=== PATIENT | female | born 1985 ===

== ENCOUNTER → 2017-10-06 | Emergency (ER) | payer SELFPAY ==
[~2017-10-06] MED LIST: Lactated Ringer's 1,000 ML IV SCH
[2017-10-06 22:24] VITALS: BMI 23.9
--- NOTE | 2017-10-06 23:55 | OBHP ---
Datetime: 10/06/2017 21:43 IP Adm Impression: , intrauterine IP Chief Complaint Other: pelvic pain IP Admit Plan: Observation/Evaluation; Discharge home Admit Comment, IP Provider: HPI: The patient is a 32 y/o F , 29.6 weeks EGA by LMP with EDC 1 who presents to [facility] c/o lower pelvic pain that started today at 6 pm, is up to 7/10 in inten sity, pressure like in quality, patient sates is intermittent and it happens mostly when she is stand ing and walking around and gets relief when she is resting, she states the pain has no radiation. Pat ient denies vaginal bleeding, denies feeling contractions, loss of fluid. Denies recent sexual activi ty in the last week, trauma, dizziness, headache, chest pain, SOB, N/V/D, or dysuria. Patient reports movements recently. Patient resports a whitish discharge that she noticed more than a week ago , denies itchcing or mal odor. OBGYN: , patient reports hx of 2 , patient reports that at the end of her second pregna ncy she was told she was at risk of delivery but she delivered term. ROS: Unremarkable, except as per HPI. LMP: 12/09/17, TOM:12/16/17, Fisrt US: 06/30/17 PMH: none FMH: none Social Hx: Denies tobacco/ETOH/Rec drugs Surg Hx: None Allergies: NKA MEDS: PNV Provider: Dr Boyle at [facility] clinic. Assessment/Plan 32 y/o with EGA 29.6 weeks, TOM 12/16/17 with c/o inttermiten pelvic pain for approxiamtel y 4 hours that increases with standing and walking and gets relief with rest, and with reproducible t enderness to palpation of pubic area could be caused by pubic symphysis pain during vs pret erm uterine contractions given her reported hx of risk of labor in her second . -IVF hydration -Transvaginal US with Cervix length measurement. Thom Tavarez MD PGY1 OB Hospitalist Addendum: Pt seen and examined by me. Agree w/ above. 32 yo at 29+6 wks w/ pelvic pain since 6 pm. On exam, elicited pubic bone tenderness w/ palpation. U/s revealed cervi x long and closed, 4.1 cm. Pt given IVF and uterine irritability resolved Expained to her w/ trhe resident translating that she may have pubic symphysis separation. Rec a pelvic brace, tylenol as n eeded and rest. Pt discharged home and has a f/u appoint on Mon., 10/13/2017. (ES) FHR - Baseline A Provider: 140's Contraction Comments Provider: irritability Comments, ACOG Physical Exam: GEN: NAD HEENT: Normocephalic, EOMI RESP: CTA bilateral CV: RRR,S1 S2 present normal, no murmurs noted ABD: Gravid, BS present, reproducible tenderness to palpation of pubic area LE: no edema. Pelvic Exam: Cervix closed IP Hx Assessment: The History has been Reviewed and is Current EGA AdmitDate IP: 28.6 Vital Signs Provider: Reviewed IP Chief Complaint: Other NICHD Variability Prov Fetus A: Moderate 6-25bpm NICHD Decel Fetus A IP Provider: None Dilatation, Provider: 0 Effacement, Provider: 0 Station, Provider: -3
--- NOTE | 2017-10-06 23:55 | OBDCSUM ---
Datetime: 10/06/2017 23:53 Discharged to, Provider: Home Discharged to, Provider: [place] Follow up at, Provider: [facility] Follow up at, Provider: [facility] Disch Instr Activity: Normal activity Disch Instr Diet: Regular Discharge Instructions, Provider: Routine instructions given Discharge Time: 10/06/2017 23:54 Follow up in weeks, Provider: 1 week Disch Referrals: None Discharge Diagnosis Prov Other: Pelvic pain at 29+ 6 wks
--- NOTE | 2017-10-07 11:20 | US ---
Date of service: 10/06/2017 PROCEDURE: Limited pelvic ultrasound HISTORY: irritability at 29 weeks Request for cervical length only. COMPARISON: None available. TECHNIQUE: Standard protocol for this study/examination. FINDINGS: Cervical length 4.1 cm. The cervix is closed. IMPRESSION: Closed cervix 4.1 cm. Concordant results (preliminary interpretation) provided by [facility]. Procedure Completed: 22:35. Preliminary ([facility]) Report: Dictated and Authenticated: 23:14 Final Interpretation: 11:18
== END | disposition home or self-care (01) ==
LOC: H.EROB2 20:34
DX: O26.93 Pregnancy related conditions, unspecified, third trimester (principal); R10.2 Pelvic and perineal pain; N89.8 Other specified noninflammatory disorders of vagina; Z3A.29 29 weeks gestation of pregnancy
CPT/HCPCS: 76817; 96360; 99284; J7120

== ENCOUNTER 2017-11-11 10:37 | Emergency (ER) | payer SELFPAY ==
[2017-10-06 22:24] VITALS: BMI 23.9
[2017-11-11 13:10] VITALS: BP 120/78; PULSE 63; RESP 16; TEMP 98; O2SAT 98
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
== END 2017-11-11 13:36 | disposition left against medical advice (07) ==
LOC: H.ER 10:37 → H.EROB2 10:37 → H.ER 13:36
DX: O26.93 Pregnancy related conditions, unspecified, third trimester (principal); Z04.3 Encounter for examination and observation following other accident; Z3A.35 35 weeks gestation of pregnancy; M54.2 Cervicalgia; M54.9 Dorsalgia, unspecified; V43.62XA Car passenger injured in collision with other type car in traffic accident, initial encounter

== ENCOUNTER 2017-11-23 00:31 | Emergency (ER) | payer SELFPAY ==
[2017-11-23 01:08] VITALS: BMI 25.6
--- NOTE | 2017-11-23 01:39 | OBHP ---
Datetime: 11/23/2017 01:28 IP Adm Impression: , intrauterine IP Chief Complaint Other: urinary frequency IP Admit Plan: Observation/Evaluation; Discharge home Admit Comment, IP Provider: 32 @ 36w5d presents here today c/o urine frequency with scanty urin ation. She also reports of pelvic pressure on and off. Denies VB or LOF but feels movements. OBHX: PMHx: Nil of Note PSHx: None Social Hx: No toxic habits O: HR- RRR Chest: CTA B/L CVA tenderness - absent B/L ABd: Soft, NT, BS- present FHR- Category 1 TOCO: none SVE: 0/0/-3 Assessment: IUP at 36+ weeks UTI NST - reactive Plan: UA Macrobid 100mg BID X 7 days Increase fluid intake. D/C Home when UA results are in F/U with the clinic in 1 week Pelvic Type - PN: Adequate Extremities - PN: Normal Abdomen - PN: Normal Back - PN: Normal Breast - PN: Normal Lungs - PN: Normal Heart - PN: Normal Thyroid - PN: Normal Neurologic - PN: Normal HEENT - PN: Normal General - PN: Normal Presentation-Admit: Vertex FHR - Baseline A Provider: 150 Membranes, Provider: Intact Gestation - Est Wks by US: 36.5 EGA AdmitDate IP: 36.5 Vital Signs Provider: Reviewed IP Chief Complaint: Maternal discomfort NICHD Variability Prov Fetus A: Moderate 6-25bpm NICHD Accel Fetus A IP Provider: 15X15 FHR Category Provider Fetus A: Category I NICHD Decel Fetus A IP Provider: None Dilatation, Provider: 0 Effacement, Provider: 0 Station, Provider: -3 Genitourinary Exam: Normal DTRs - PN: Normal
[2017-11-23 02:11] LABS: SQUAMOUS EPITHIAL 2 /hpf (0-5); URINE BACTERIA OCC (<OCC); URINE BILIRUBIN NEGATIVE (NEGATIVE); URINE BLOOD SMALL (NEGATIVE); URINE CLARITY SLIGHTY-CLOUDY (Clear); URINE COLOR YELLOW (YELLOW); URINE GLUCOSE (UA) NEG (Normal); URINE LEUKOCYTE ESTERASE NEG Leu/uL (Negative); URINE PROTEIN NEGATIVE (NEGATIVE); URINE UROBILINOGEN 0.2-1.0 mg/dL (0.2-1.0)
[2017-11-23 09:30] VITALS: BP 115/70; PULSE 66; RESP 18; TEMP 98.2; O2SAT 98
== END 2017-11-23 02:35 | disposition home or self-care (01) ==
LOC: H.EROB2 00:31
DX: O99.89 Other specified diseases and conditions complicating pregnancy, childbirth and the puerperium (principal); R35.0 Frequency of micturition; O26.93 Pregnancy related conditions, unspecified, third trimester; R10.2 Pelvic and perineal pain; Z3A.36 36 weeks gestation of pregnancy

== ENCOUNTER 2017-12-05 12:25 | Inpatient (IN) | payer MEDICAID, SELFPAY ==
[2017-12-05 12:57] VITALS: BMI 26.9
[2017-12-05 13:45] LABS: MEAN CELL VOLUME 87.7 fl (81.0-99.0); MEAN CORPUSCULAR HEMOGLOBIN 29.4 pg (27.0-31.0); MEAN CORPUSCULAR HGB CONC 33.5 g/dL (33.0-37.0); RBC 4.06 Mil/uL (3.80-5.20); RED CELL DISTRIBUTION WIDTH 14.8 % (11.5-14.5); WHITE BLOOD COUNT 7.9 K/uL (4.8-10.8)
[2017-12-05 13:57] LABS: ALB/GLOB RATIO 0.9 (1.0-2.1); ALBUMIN 3.5 g/dL (3.5-5.0); ALT/SGPT 23 U/L (9-52); AST/SGOT 24 U/L (14-36); BLOOD UREA NITROGEN 6 mg/dl (7-17); CALCIUM 9.1 mg/dL (8.4-10.2); GFR NON-AFRICAN AMERICAN > 60
--- NOTE | 2017-12-05 15:58 | OBHP ---
Datetime: 12/05/2017 15:29 IP Adm Impression: Term, intrauterine IP Admit Plan: Admit to unit; Initiate labor induction protocol Admit Comment, IP Provider: HPI: 32 yo at 38.3 who was sent over from her regular clinic visit for elevated blood pressure. She reportedly had a BP reading in the 140s/90s today for the first time with complaints of headache. She reports that her headache started yesterday afternoon along with fl ashes of light in her vision whenever she moves her eyes. Denies current RUQ or epigastric pain or si gnificant swelling. Denies any current complications with this . This was dated by LMP and confirmed by 15 week US. ROS: as above, otherwise negative History G1: in 2005 @ 40 wks, no complications G2: in 2007 @ 38 wks, no complications G3: current PMH Denies PSH Denies Family History Not significant Medications PNV Allergies NKDA Social Lives with her current and 2 children. Her is not the father of her 2 other childr en. OBJECTIVE See exam section Vitals: BP has ranged from 120s-140s/60s-90s labs: GBS neg, HIV/RPR neg, Hep B neg Labs Hgb 12 Plts 179 AST/ALT 24/23 Urine protein:Cr 0.26 Assessment/Plan: 32yo at 38.3 weeks admitted for evidence of gestational hypertension and lik lia pre-eclampsia. Her elevated BP readings here and in the clinic are suggestive of new onset gestat ional hypertension and her CARRANZA and vision changes would suggets pre-eclampsia, possibly with severe fe atures, despite her protein:Cr ratio <3. Given her GA age >37 weeks and documented elevated BP she wi ll be admitted and IOL started. - Johnson score <6, starting with PO cytotec - GBS NEG - Appropriate BP monitoring, can start Mg if she has severe range BPs or her headache/vision castillo es worsen Dana Dumont MD OB Fellow Seen with the resident I agree with the note Abdomen - PN: Normal Lungs - PN: Normal Heart - PN: Normal HEENT - PN: Normal General - PN: Normal IP Fetus A Comments: Reactive NST FHR - Baseline A Provider: 135 Contraction Comments Provider: Irritability Gestation - Est Wks by US: 38.3 EGA AdmitDate IP: 38.3 Vital Signs Provider: Reviewed; Within Normal Limits IP Indication for Induction: Gest. HTN/PreEclampsia/Eclampsia IP Chief Complaint: Signs/Symptoms Gestational HTN NICHD Variability Prov Fetus A: Moderate 6-25bpm NICHD Accel Fetus A IP Provider: 15X15 NICHD Decel Fetus A IP Provider: None Dilatation, Provider: 0 Effacement, Provider: 50 Station, Provider: -3
--- NOTE | 2017-12-05 16:51 | OBADHP ---
Datetime: 12/05/2017 15:29 Admit Comment, IP Provider: HPI: 32 yo at 38.3 who was sent over from her regular clinic visit for elevated blood pressure. She reportedly had a BP reading in the 140s/90s today for the first time with complaints of headache. She reports that her headache started yesterday afternoon along with fl ashes of light in her vision whenever she moves her eyes. Denies current RUQ or epigastric pain or si gnificant swelling. Denies any current complications with this . This was dated by LMP and confirmed by 15 week US. ROS: as above, otherwise negative History G1: in 2005 @ 40 wks, no complications G2: in 2007 @ 38 wks, no complications G3: current PMH Denies PSH Denies Family History Not significant Medications PNV Allergies NKDA Social Lives with her current and 2 children. Her is not the father of her 2 other childr en. OBJECTIVE See exam section Vitals: BP has ranged from 120s-140s/60s-90s labs: GBS neg, HIV/RPR neg, Hep B neg Labs Hgb 12 Plts 179 AST/ALT 24/23 Urine protein:Cr 0.26 Assessment/Plan: 32yo at 38.3 weeks admitted for evidence of gestational hypertension and lik lia pre-eclampsia. Her elevated BP readings here and in the clinic are suggestive of new onset gestat ional hypertension and her CARRANZA and vision changes would suggets pre-eclampsia, possibly with severe fe atures, despite her protein:Cr ratio <3. Given her GA age >37 weeks and documented elevated BP she wi ll be admitted and IOL started. - Johnson score <6, starting with PO cytotec - GBS NEG - Appropriate BP monitoring, can start Mg if she has severe range BPs or her headache/vision castillo es worsen Dana Dumont MD OB Fellow Seen with the resident I agree with the note Abdomen - PN: Normal Lungs - PN: Normal Heart - PN: Normal HEENT - PN: Normal General - PN: Normal IP Fetus A Comments: Reactive NST FHR - Baseline A Provider: 135 Contraction Comments Provider: Irritability Gestation - Est Wks by US: 38.3 Vital Signs Provider: Reviewed; Within Normal Limits IP Chief Complaint: Signs/Symptoms Gestational HTN NICHD Variability Prov Fetus A: Moderate 6-25bpm NICHD Accel Fetus A IP Provider: 15X15 NICHD Decel Fetus A IP Provider: None Dilatation, Provider: 0 Effacement, Provider: 50 Station, Provider: -3 EGA AdmitDate IP: 38.3 IP Adm Impression: Term, intrauterine IP Admit Plan: Admit to unit; Initiate labor induction protocol Datetime: 11/23/2017 01:28 IP Chief Complaint Other: urinary frequency Pelvic Type - PN: Adequate Extremities - PN: Normal Back - PN: Normal Breast - PN: Normal Thyroid - PN: Normal Neurologic - PN: Normal Presentation-Admit: Vertex Membranes, Provider: Intact FHR Category Provider Fetus A: Category I Genitourinary Exam: Normal DTRs - PN: Normal Datetime: 11/11/2017 11:29 IP Admit Plan Other: transfer to ER IP Hx Assessment: The History has been Reviewed and is Current Datetime: 10/06/2017 21:43 Comments, ACOG Physical Exam: GEN: NAD HEENT: Normocephalic, EOMI RESP: CTA bilateral CV: RRR,S1 S2 present normal, no murmurs noted ABD: Gravid, BS present, reproducible tenderness to palpation of pubic area LE: no edema. Pelvic Exam: Cervix closed
[2017-12-05] MEDS ORDERED: Oxytocin 30 UNIT 30 UNITS/500 ML BAG IV ONE (22:00)
[2017-12-05] MEDS ORDERED: OXYTOCIN/0.9 % NS 20 UNIT/1,000 ML BAG IV SCH (22:00)
--- NOTE | 2017-12-06 09:34 | OBPN ---
Datetime: 12/06/2017 09:27 IP Progress Impression: Reassuring heart rate IP Procedures: Sterile Vag Exam IP Progress Plan: Continue present management; Cervical Ripening Membranes, Provider: Intact Contraction Comments Provider: irregular FHR - Baseline A Provider: 130 Gestation - Est Wks by US: 38.4 Presentation-Admit: Vertex IP Progress Note Comment: IUP at 38.4 Preeclampsia with severe features Undergoing IOL Cytotec for cervical ripening #2 Plan: Contunue current management Next dose of cytotec by vaginal route. Re evaluate. NICHD Accel Fetus A IP Provider: 15X15 FHR Category Provider Fetus A: Category I NICHD Variability Prov Fetus A: Moderate 6-25bpm Dilatation, Provider: 1-2 Effacement, Provider: 40 Station, Provider: -3 NICHD Decel Fetus A IP Provider: None Datetime: 12/06/2017 05:39 IP Informed Consent Obtain: Induction of Labor Vital Signs Provider: Reviewed; Within Normal Limits Datetime: 12/05/2017 15:29 IP Fetus A Comments: Reactive NST
--- NOTE | 2017-12-06 09:37 | OBPN ---
Datetime: 12/06/2017 05:39 IP Progress Note Comment: Subjective: Patient is 32 year old at 38.4 weeks sleeping in bed comf ortably with no current complaints, just minor abdominal discomfort. Admitted for induction of labor 12/05 due to gestational hypertension. Objective: FHT: Baseline 130 BPM; moderate variability, Accelerations present 15x15; no decelerations. Catego ry I. CTX: none, no complaints VS: stable GEN: NAD Cardio: S1S2, no M/G/R Resp: clear breath sounds b/l EXT: calves non-tender NEURO/PSYCHI: preserved affect and mood. Meds: Cytotec 25mcg PO Q4h. Patient comfortable. Good urine output. Assessment: 32 year old at 38.4 weeks admitted for induction of labor; not yet in active labo r s/p 4 Cytotec 25 mcg. Plan: Continue Cytotec 25 mcg PO Q4 Monitor BP (range overnight: 110-140/50-70) FHT reassuring, Category 1 Observe labor progression GBS negative Active management, anticipate vaginal delivery/consider caesarean if necessary Case discussed with Dr. Abbott ---Kinjal Colon, PGY1 Family Medicine. Attending Note: Patient was discussed with the resident and I agree with the above assessment.
[2017-12-06] MEDS ORDERED: Oxytocin 30 UNIT 30 UNITS/500 ML BAG IV ONE ×2 (16:50→17:05)
[2017-12-06] MEDS: Lactated Ringer's 1,000 ML IV SCH ×2 (17:04→20:50)
--- NOTE | 2017-12-06 22:05 | OBPN ---
Datetime: 12/06/2017 17:15 IP Progress Impression: Normal progression of labor; Reassuring heart rate IP Progress Plan: Continue present management; Augmentation Contraction Comments Provider: every 3-4 minutes FHR - Baseline A Provider: 150 NICHD Accel Fetus A IP Provider: 10X10 FHR Category Provider Fetus A: Category II NICHD Variability Prov Fetus A: Moderate 6-25bpm Dilatation, Provider: 2 Effacement, Provider: 50 Station, Provider: -2 NICHD Decel Fetus A IP Provider: None Datetime: 12/06/2017 11:12 IP Progress Note Comment: 08:50 32 yo IUP @ 38.3 weeks Preeclampsia with severe features Undergoing IOL S: Patient is in no acute distress. O: Vitally stable. Vaginal exam: / -3 ; Cytotec 25mg placed intra vaginally. Assessment: IUP at 38.4weeks Being induced for Preeclampsia with severe features Maternal and status reassuring Plan: - Continue heart monitoring - Assess cervical change when next dose will be given. - Continue Cytotec 25mg intravaginally
--- NOTE | 2017-12-06 22:08 | OBPN ---
Datetime: 12/06/2017 17:15 IP Progress Note Comment: Subjective: Patient lying in bed and in no acute distress. She is mildly d iscomfort. Objective: BP: 126 / 87 HR: 91?, RR 16??, T 98.3 FHT: 150 Baseline; Moderate variability, Accelerations present 10 x10 ; No decelerations. CTX: Q 3-4 minutes SVE: 2 cm Dilation / 50% effacement/ -2 station FHT reassuring, Category : 1 Assessment: 24 yo with IUP @ 38.6 weeks Induction of labor . Plan: - continous heart monitoring. - Augment labor with Pitocin Discussed with Dr. Abbott --Frances Worley, PGY-1 Family Medicine Patient was seen and examined with resident and I agree with the above assessment. Dr Signature: tono
--- NOTE | 2017-12-07 01:09 | OBPN ---
Datetime: 12/07/2017 01:01 IP Progress Impression: Normal progression of labor; Reassuring heart rate IP Procedures: Artificial ROM; Sterile Vag Exam IP Progress Plan: Continue present management Membranes, Provider: Intact Contraction Comments Provider: Q 2-3 FHR - Baseline A Provider: 140s Gestation - Est Wks by US: 38.5 Presentation-Admit: Vertex IP Progress Note Comment: IUP at 38.5wks Active labor reassuring status Plan: Continue augmentation with Pitocin. May have epidural NICHD Accel Fetus A IP Provider: 15X15 FHR Category Provider Fetus A: Category I NICHD Variability Prov Fetus A: Moderate 6-25bpm Dilatation, Provider: 4 Effacement, Provider: 80 Station, Provider: -2 NICHD Decel Fetus A IP Provider: None
[2017-12-07] MEDS ORDERED: Lactated Ringer's 1,000 ML IV SCH (02:00)
[2017-12-07] MEDS ORDERED: Fentanyl/Bupivacaine HCl 250 ML EPI ONE (02:15)
[2017-12-07] MEDS ORDERED: Oxycodone/Acetaminophen 5/325 mg Tab PO PRN ×2 (03:49→06:01)
--- NOTE | 2017-12-07 04:00 | OBDS ---
MATERNAL INFORMATION Provider Comments: Uncomplicated Spontaneous vaginal delivery of a viable female infant with BW of 2 870g and scores of 9 and 9. Deliverred in the LAVON position over an intact perineum. EBL- 200mls Patient tolerated the procedure well LABOR SUMMARY EDC: 12/16/2017 00:00 No. Babies in Womb: 1 Attempted: No LABOR INFORMATION Reason for Induction: Gest. HTN/PreEclampsia/Eclampsia Cervical Ripening Agents: Cytotec @ Other Ripening Agents: oxytocin Oxytocin: Augmentation Group B Beta Strep: Negative Steroids Given: None Reason Steroids Not Administered: Not Applicable MEMBRANES Membranes Rupture Method: Artificial Amniotic Fluid Color: Clear Amniotic Fluid Amount: Small PRESENTATION/POSITION BABY A Presentation: Cephalic
[2017-12-08 05:47] LABS: BASO % 0.5 % (0.0-2.0); EOS # 0.2 K/uL (0.0-0.7); EOS % 2.3 % (0.0-4.0); HEMOGLOBIN 11.5 g/dL (12.0-16.0); LYMPH # 2.1 K/uL (1.0-4.3); MEAN CELL VOLUME 88.4 fl (81.0-99.0); MEAN CORPUSCULAR HEMOGLOBIN 29.2 pg (27.0-31.0); MEAN CORPUSCULAR HGB CONC 33.1 g/dL (33.0-37.0); MEAN PLATELET VOLUME 10.6 fl (7.2-11.7); MONO # 0.7 K/uL (0.0-0.8); MONO % 8.1 % (0.0-10.0); NEUT % 66.1 % (50.0-75.0); RBC 3.94 Mil/uL (3.80-5.20); RED CELL DISTRIBUTION WIDTH 15.2 % (11.5-14.5)
--- NOTE | 2017-12-08 07:39 | OBPPN ---
Datetime: 12/08/2017 06:58 PP Pain Prov: Within normal limits PP Nausea Prov: Denies PP Flatus Prov: Yes PP BM Prov: Yes PP Breasts Prov: Not Done PP Heart Prov: Normal PP Lungs Prov: Normal PP Abdomen/Uterus Prov: Normal PP Lochia Prov: Normal PP Vulva/Perineum Prov: Not Done PP CVA Tenderness Prov: Not Done PP Extremities Prov: Normal PP C/S Incision Prov: Not Applicable PP Progress Prov: Normal PP Impression Prov: Normal progression PP Plan Prov: Continue present management PP Progress Note Prov: S: 32 yo s/p NVD on 12/07/2017 at 3:29 am. Pt. is seen and examined at [facility] this AM. No significant overnight events. Pt reports occasional abdominal pain, but well contr olled with pain meds. Pt sitting up comfortably without any difficulty. Breast feeding baby. Tolerati ng diet. Lochia is similar to light menses in volume. Patient voiding without difficulties and report s one bowel movement. Denies fever, chills, diarrhea, nausea, vomiting, chest pain, dyspnea, and dizz iness. O: VS: stable GEN: NAD Cardio: S1S2, no M/G/R Resp: clear breath sounds b/l Abdomen: BS+, NT, Uterus is firm and at the level of the umbilicus. EXT: No edema, calves non-tender NEURO/PSYCHI: normal affect and mood Assessment/Plan: 32 yo s/p NVD on 12/07/2017 at 3:29 am. Pt remains afebrile, tolerating pain with medication, tolerating PO, doing well on PPD 1. OOB with caution -Patient sitting up without difficulty -Ibuprofen 600mg for pain. -Colace 100mg PO BID/Senokot 17.2 mg qHS for constipation -Encourage -F/u CBC post-delivery: pending -Anticipated d/c to home, 12/09/2017. Case discussed with Dr. Goldstein --- Kinjal Colon, PGY1 OB Hospitalist Addendum: Pt seen and examined by me. Agree w/ above. PPD 1 s/p VD, doing well, b reast feeding. Continue current management. (ES) IP PP Procedures: None Vital Signs Provider PP: Reviewed; Within Normal Limits
[2017-12-08] MEDS ORDERED: Influenza Vaccine (5 YR UP)/PF 60 MCG/0.5 ML SYR IM ONE (09:00)
--- NOTE | 2017-12-08 14:32 | OBDCSUM ---
Datetime: 12/08/2017 13:55 Discharged to, Provider: Home Follow up at, Provider: [facility] Disch Instr Activity: Normal activity; May be up to bathroom; May be up for meals; May Shower Disch Instr Diet: Regular Discharge Instructions, Provider: Routine instructions given Discharge Diagnosis, Provider: Term Delivered Discharge Time: 12/08/2017 14:28 Follow up in weeks, Provider: 01/13 @ 9:45am Disch Referrals: None Disch Activity Restrictions: No exercising; No lifting; Minimize stair-climbing; No sexual activity; Nothing in vagina - [place], tampons, douche Discharge Comment, Provider: DOA: 12/05/2017 EGA: 38.3 Diagnosis: NVD, Term Risk factors: gestational HTN Summary of : 32 yo presented at 38.3 for IOL d/t gestational hypertension. Previous two pregnancies resulted in at 40 and 38 weeks without complications. L_D summary: Cytotec 25 mcg PO Q4 (4 doses total), Cytotec 25 mcg vaginal (2 doses total), Pitocin augmentation (10 hours leading up to NVD). DOL: 12/07/2017 at 3:29 am NVD NB: F : 8/9 Weight: 2870g PP summary No serious complications during PP. Lochia= menses, mild pain, controlled with medications Blood type: O+ (antibody neg) CBC pp: 11.5/34.8 Discharge Date: 12/08/2017 Time 3:35 PM *Patient requesting for discharge before 48 hours post-delivery. Baby cleared by pediatrics and xena diaz to the patient's uncomplicated delivery and course, patient is cleared for discharge to home at 35 hours post vaginal delivery. Discharge Instructions: -Encourage -Ibuprofen for pain PRN -Senokot 17.2 mg qHS for constipation -Ambulate as tolerated -Activity: Normal, may shower -Activity restrictions: No exercising, lifting, minimize stair climbing, Nothing per vagina/interc ourse 4-6 weeks -Follow up 01/13 @ 9:45am with Dr Real at [facility] Case seen and discussed with Dr Goldstein. -Kinjal Colon, PGY1 Contraception after Delivery: Depo-Provera
[2017-12-08 22:33] VITALS: BP 137/79; PULSE 66; RESP 18; TEMP 97.8; O2SAT 99
== END 2017-12-08 16:45 | disposition home or self-care (01) | DRG 807 ==
LOC: H.EROB2 12:25 → H.EROB 12:58 → H.L&D 15:26 → H.EROB2 15:36 → H.OB/GYN 12-07 05:15
PROVIDERS: ADMIT Obstetrics & Gynecology Gynecology; ATTEND Obstetrics & Gynecology Gynecology
PROC: 4A1HXCZ Monitoring of Products of Conception, Cardiac Rate, External Approach (ICD-10-PCS; 2017-12-05)
PROC: 10E0XZZ Delivery of Products of Conception, External Approach (ICD-10-PCS; principal; 2017-12-07)
PROC: 10907ZC Drainage of Amniotic Fluid, Therapeutic from Products of Conception, Via Natural or Artificial Opening (ICD-10-PCS; 2017-12-07)
PROC: 3E02340 Introduction of Influenza Vaccine into Muscle, Percutaneous Approach (ICD-10-PCS; 2017-12-08)
DX: O14.14 Severe pre-eclampsia complicating childbirth (principal); O13.4 Gestational [pregnancy-induced] hypertension without significant proteinuria, complicating childbirth; Z37.0 Single live birth; Z3A.38 38 weeks gestation of pregnancy; Z23 Encounter for immunization